=== PATIENT | male | born 1940 | race Caucasian/White ===

== ENCOUNTER 2022-11-28 07:48 | Outpatient (CLI) | payer MEDICARE ==
[2022-11-28] MEDS ORDERED: Iopamidol 300 61% 100 ML VIAL FS ONE (08:49)
== END 2022-11-28 07:49 | disposition home or self-care (01) ==
LOC: CSHCT 07:48
PROVIDERS: ATTEND Internal Medicine Gastroenterology
DX: K52.832 Lymphocytic colitis (principal); R19.00 Intra-abdominal and pelvic swelling, mass and lump, unspecified site; K21.9 Gastro-esophageal reflux disease without esophagitis; Z80.0 Family history of malignant neoplasm of digestive organs; Z95.0 Presence of cardiac pacemaker; R91.1 Solitary pulmonary nodule; K80.20 Calculus of gallbladder without cholecystitis without obstruction; K57.30 Diverticulosis of large intestine without perforation or abscess without bleeding; N40.0 Benign prostatic hyperplasia without lower urinary tract symptoms; N32.89 Other specified disorders of bladder
CPT/HCPCS: 74177; 82565